=== PATIENT | female | born 1990 | race Caucasian/White ===

== ENCOUNTER 2019-10-10 15:11 | Emergency (ER) | payer OTHER, SELFPAY ==
--- NOTE | 2019-10-10 15:16 | ED.GENADULT ---
HPI - General Adult General Chief complaint: Upper Respiratory Infection Stated complaint: Fever Time Seen by Provider: 10/10/19 15:33 Source: patient Mode of arrival: ambulatory Limitations: no limitations History of Present Illness HPI narrative: 28-year-old female patient presents to the [facility] with complaints of fever and cold symptoms for the past 5 days. Patient denies getting a flu shot this year. Patient states she is just been feeling really rundown and tired. Patient states that she did have some nausea and vomiting symptoms but that has since resolved. Patient states she has been taking [id number] DayQuil and NyQuil for her symptoms. Related Data Home Medications Medication Instructions Recorded Confirmed No Home Medications 10/10/19 10/10/19 Allergies Allergy/AdvReac Type Severity Reaction Status Date / Time No Known Allergies Allergy Unverified 10/10/19 15:31 Review of Systems Review of Systems: Narrative: CONSTITUTIONAL: Positive subjective fever, chills, body aches and sweats. EYES: Denies visual changes, redness, or discharge. ENT: Positive rhinorrhea, congestion, denies sore throat, or otalgia. CARDIOVASCULAR: Denies chest pain, palpitations, or edema. RESPIRATORY: Denies cough or dyspnea. GASTROINTESTINAL: Denies abdominal pain, nausea, vomiting, or diarrhea. GENITOURINARY: Denies dysuria or hematuria. SKIN: Denies rash or itching. MUSCULOSKELETAL: Denies back pain, joint pain, or myalgia. NEUROLOGIC: Positive headache, denies numbness, or weakness. PSYCHIATRIC: Denies anxiety or depression. FOR[facility]LY [facility] Social History Social History Gender identity (if verbalized by the patient): Female Comments At the time of my signature I agree with nursing past medical history, surgical, social, and family history. There is no relevant family history pertinent to the presenting complaint. Exam Narrative: Exam Narrative: GENERAL: ill-appearing, well-nourished, and in no acute distress. HEAD: Normocephalic, atraumatic. No tenderness noted to frontal maxillary sinuses on palpation. EYES: PERRLA and EOMI. ENT: Nares with erythema edema noted bilaterally, patent, no rhinorrhea or epistaxis. Mucous membranes moist. Posterior pharynx with no erythema, tonsillar margin, exudates or lesions present. Bilateral TMs are clear with no erythema or foreign bodies in the canal. NECK: Supple. No lymphadenopathy CHEST: Clear to auscultation. No respiratory distress. HEART: Regular rate and rhythm. No murmur heard. Normal peripheral pulses. ABDOMEN: Soft, nontender, nondistended, normal active bowel sounds. EXTREMITIES: Normal range of motion. No edema. SKIN: Warm, dry, no rash. NEURO: No focal deficits. Alert and oriented x3. Course Vital Signs Vital signs: Vital Signs Temperature 37.8 C H 10/10/19 15:22 Pulse Rate 76 10/10/19 15:22 Respiratory Rate 18 10/10/19 15:22 Blood Pressure 126/67 10/10/19 15:22 Pulse Oximetry 100 10/10/19 15:22 Temperature 37.8 C H 10/10/19 15:22 Pulse Rate 76 10/10/19 15:22 Respiratory Rate 18 10/10/19 15:22 Blood Pressure 126/67 10/10/19 15:22 Pulse Oximetry 100 10/10/19 15:22 Vital signs reviewed. Medical Decision Making Differential Diagnosis Differential Diagnosis: Differential diagnosis: Allergic rhinitis, chronic sinusitis, tonsillitis, acute sinusitis, infectious mononucleosis, seasonal influenza, pertussis, diphtheria, meningococcal disease, viral syndrome, viral bronchitis, RSV. Discussed with patient that her influenza test is positive for influenza B today. Discussed with patient that since her symptoms have been going on now for 5 days she has outside of the window to receive antivirals. Discussed with patient that typically we recommend [id number] Tylenol and ibuprofen for her body aches, pains and fevers. Discussed with her she should increase her fluids and get plenty of
[2019-10-10 15:22] VITALS: BP 126/67; PULSE 76; RESP 18; TEMP 37.8; O2SAT 100
== END 2019-10-10 15:40 | disposition home or self-care (01) ==
PROVIDERS: Emergency Provider Nurse Practitioner Family
DX: J10.1 Influenza due to other identified influenza virus with other respiratory manifestations (principal)
CPT/HCPCS: 87804; 99213; G0463